=== PATIENT | female | born 2000 | race Caucasian/White ===

== ENCOUNTER 2024-06-29 18:33 | Emergency (ER) | payer BC, SELFPAY ==
[2024-06-29 18:38] VITALS: BP 130/73
[2024-06-29 18:57] VITALS: BMI 19.6
--- NOTE | 2024-06-29 19:49 | ED.GENMED ---
History of Present Illness
General
Chief Complaint: Catheter/Tube Problem
Source: patient
Exam Limitations: none
Time Seen by Provider: 06/29/24 19:19
Nursing documentation reviewed up to this point in time: agreed with
History of Present Illness
History of Present Illness:
23-year-old female with no significant chronic medical history who is currently and has been dealing with hyperemesis gravidarum presents to the ER for midline issue. Patient has a midline due to hyperemesis gravidarum receives regular
infusions of fluids and medication. Today had a home infusion and the line was apparently leaking and visiting nurse was having difficulty getting blood return and patient was sent to the emergency room for assessment. She does have some soreness
around the left upper arm but no redness or swelling. No other acute complaints.
Review of Systems
Review of Systems
All Other Systems: ROS reviewed and negative except as documented in HPI and ROS
Musculoskeletal: Reports other (Arm pain, midline issue)
Phy Exam
Physical Exam
Physical Exam:
General: Well appearing and non-toxic
HEENT: protecting airway
Neck: appears supple
CV: No evidence of cyanosis
Resp: No accessory muscle use
Abd: Non-distended
Extremities: No deformities; patient has a midline in the left upper arm; clean dressing in place, no erythema or warmth of the area, no tenderness, no edema, strong distal pulse
Neuro: Alert
Psych: Normal affect
Skin: Intact
Scores
Heart Failure Risk
Heart Failure Risk Score: Not Applicable
Heart Score for Chest Pain Patients
STEMI patient?: Not applicable
Withdrawal Assessment of Alcohol
Withdrawal Assessment Completed?: Not applicable
Course
Orders/Labs/Results
Orders:
Orders
06/29/24 19:23
Midline IV As Directed
06/29/24 19:28
US Periph Venous UPPER Ext LT Urgent
Comment:
Reason For Exam: arm pain s/p midlne
06/29/24 19:59
0.9% Sodium Chloride 1000 ml [Nss] 1,000 ml IV BOLUS
Thiamine Injection 100 mg IV NOW STA
Vital Signs
Initial and Last Documented VS:
Initial Vital Signs
Temp Pulse Resp BP Pulse Ox
36.8 C 83 18 130/73 100
06/29/24 18:38 06/29/24 18:38 06/29/24 18:38 06/29/24 18:38 06/29/24 18:38
Last Documented Vital Signs
Temp Pulse Resp BP Pulse Ox
36.8 C 83 18 130/73 100
06/29/24 18:38 06/29/24 18:38 06/29/24 18:38 06/29/24 18:38 06/29/24 18:38
MDM/Problems Addressed
Differential Diagnosis Includes:
DVT/thrombophlebitis, line displacement
MDM/Problems Addressed:
23-year-old female presents with midline issue that she has midline for hyperemesis gravidarum and had some leakage today and is having some soreness in the upper arm near where her line is placed. Vitals are normal, exam as above. Will check
ultrasound to rule out signs of DVT. Will remove current line and replace a midline in the right upper extremity. Reassess after the above.
Patient did not receive her infusion today due to midline issue�she was due for a dose of thiamine and normal saline infusion. Ordered here while ultrasound pending.
Ultrasound does show thrombus in the left basilic vein in the upper arm. Case discussed with hematology�given that patient is 10 weeks and that nidus for thrombus has been removed recommended conservative with monitoring and serial
ultrasounds rather than full anticoagulation. I had a long discussion with patient she feels comfortable with this plan. Plan to discharge with plan for repeat ultrasound as an outpatient. Spoke about return precautions all questions answered.
*Radiology
Radiology exam reviewed: radiology read reviewed
*Pulse Oximetry
Patient hypoxic: no
*Critical Care Note
Total Time (30-74mins, 75-104mins- exclusive of procedures): Not Applicable
Data Reviewed
Source: patient and spouse
Patient Management
Discussion with other providers: Hand Sewer Shoes (Discussed with hematology)
ED Attending Note
-
Portions of this chart may have been created with voice recognition software.� Occasional wrong word or��sound alike� substitutions may have occurred due to the inherent limitations of voice recognition software.
Discharge Plan
Departure
Patient Disposition: Home (Routine Discharge)
Date of Disposition: 06/29/24
Time of Disposition: 21:57
Patient with high blood pressure during this ER visit?: No
Discharge Problem:
Encounter for intravenous line placement, Acute basilic vein thrombosis
Instructions: How to care for a midline IV catheter, Midline IV catheter insertion
Referrals:
Dimas Lopez DO [Active] - Call in 1-3 days for appt (Hematology)
Lea Armstrong DO [Family Provider] -
Activity Restrictions/Additional Instructions:
You were found to have a clot in your arm near the site of your prior midline. This midline was removed and replaced on the other side. After discussion with the public health program manager they recommended monitoring without anticoagulation and getting a repeat
ultrasound as an outpatient. You should call to schedule follow-up appoint with the public health program manager in the office next week. If you notice worsening swelling or pain in your arm or you develop any other symptoms including chest pain or shortness of
breath please return immediately to the emergency room.
Thank you for visiting the Emergency Department at [facility].
1. Please schedule a follow up appointment as directed. Call first thing tomorrow morning to make an appointment.
2. If indicated, please take your medications as instructed and indicated on discharge paperwork.
3. If any of your symptoms do not improve, or persist, or become more severe within 6-12 hours, please return to the emergency department for further care.
4. Please return to the emergency department if you develop a headache, neck pain/stiffness, fever greater than 100.4F, chest pain, shortness of breath, persistent nausea, vomiting, slurred speech, difficulty walking, numbness/tingling, weakness,
signs of infection or any other symptoms that are worrisome to you.
Please call [phone] if you have any questions.
Interventions
Interventions:
*Risk Screen - Suicide Last Done: 06/29/24 18:38
*General Assessment Last Done: 06/29/24 18:38
*Neglect/Abuse Screening Last Done: 06/29/24 18:38
*ED- Fall Risk Assessment Last Done: 06/29/24 18:57
*ED COVID-19 Vaccine History Last Done: 06/29/24 18:57
WJ-Jupwar-Wdjmhxclcj Assessment Last Done: 06/29/24 18:57
ED-Female Genitourinary Assessment Last Done: 06/29/24 18:57
Discharge Date and Time
Print Language: AZERI
[2024-06-29] MEDS: NSS 1000 IV (20:06)
[2024-06-29] MEDS: THIAMINE INJECTION 100 MG IV (20:46)
--- NOTE | 2024-06-29 21:54 | VATNOTE ---
Called by ER staff to check Lt. arm Midline with pain in upper left arm. No notable redness, swelling, arm circumference is 25cm, which is what the spouse said it was on insertion. Drsg. c/d/i. Flushes easily, no blood return. Recommend US,
aware. New 4FR SL Midline inserted without difficulty in right arm, mina. well. rougher helper aware.
== END 2024-06-29 22:05 | disposition home or self-care (01) ==
LOC: EMR 18:33
PROVIDERS: EMERGENCY PHYSICIAN Emergency Medicine; FAMILY PHYSICIAN Family Medicine
DX: O22 Venous complications and hemorrhoids in pregnancy (principal); I82.612 Acute embolism and thrombosis of superficial veins of left upper extremity; Z46.89 Encounter for fitting and adjustment of other specified devices; O21.0 Mild hyperemesis gravidarum; Z3A.10 10 weeks gestation of pregnancy
CPT/HCPCS: 96374; 96361; 99284; 93971

== ENCOUNTER 2024-07-12 18:50 | Emergency (ER) | payer BC, SELFPAY ==
[2024-07-12 18:57] VITALS: BP 134/90
[2024-07-12 22:13] VITALS: BP 97/55; BMI 20.7
--- NOTE | 2024-07-12 22:15 | ED.GENMED ---
History of Present Illness
General
Chief Complaint: Catheter/Tube Problem
Source: patient
Time Seen by Provider: 07/12/24 22:05
History of Present Illness
History of Present Illness:
23-year-old female, G2, P0, currently 12 weeks presenting to the ER for evaluation after she noticed some discomfort to her right upper extremity during home infusion today through her right upper extremity midline. Patient was seen here
about 2 weeks ago when she had a midline to her left upper extremity which was found to have a basilic vein thrombosis, had the midline switch to her upper extremity and removed from the left. Patient was concern for possible recurring thrombus
which is why she presented to the ER today. She has no other concerns presently. Patient is being treated with the PICC line due to hyperemesis gravidarum.
Past History
Past History
ED Past Medical History: None
ED Past Surgical History: Other
Social History
Tobacco: Non-smoker
Alcohol: None
Drug: None
Personal:
Living: with family
Review of Systems
Review of Systems
All Other Systems: ROS reviewed and negative except as documented in HPI and ROS
Phy Exam
Physical Exam
Physical Exam:
GENERAL: Alert , in no apparent distress
EYE: conjunctiva clear
Head: Normocephalic atraumatic
NECK: Supple,
ENT: mmm.
LUNGS: no acute respiratory distress
NEUROLOGICAL: Alert and oriented
SKIN: Warm and dry, Right upper extremity midline in place, no surrounding erythema or edema
MUSCULOSKELETAL: well perfused.
PSYCH: Normal and appropriate interaction.
Scores
Heart Failure Risk
Heart Failure Risk Score: Not Applicable
Heart Score for Chest Pain Patients
STEMI patient?: Not applicable
Withdrawal Assessment of Alcohol
Withdrawal Assessment Completed?: Not applicable
Course
Orders/Labs/Results
Orders:
Orders
07/12/24 19:02
Venous Doppler Upr Ext Bilat [US Periph Venous UPPER Ext Roland] Urgent
Comment: midline in right upper arm, hx of clot to left upp
Reason For Exam: hx of clot from midline.
Vital Signs
Initial and Last Documented VS:
Initial Vital Signs
Temp Pulse Resp BP Pulse Ox
98.7 F 93 16 134/90 100
07/12/24 18:57 07/12/24 18:57 07/12/24 18:57 07/12/24 18:57 07/12/24 18:57
Last Documented Vital Signs
Temp Pulse Resp BP Pulse Ox
98.7 F 81 15 97/55 98
07/12/24 18:57 07/12/24 22:13 07/12/24 22:13 07/12/24 22:13 07/12/24 22:13
MDM/Problems Addressed
Differential Diagnosis Includes:
Recurring thrombosis, medication infiltration, midline discomfort
MDM/Problems Addressed:
23-year-old female presenting the ER for evaluation after experiencing discomfort to the right upper extremity for at the insertion of her midline. Here 2 weeks ago and was found to have a basilic vein thrombosis. Will order ultrasound to assess
here, disposition pending.
*Radiology
Radiology exam reviewed: radiology read reviewed
*Pulse Oximetry
Patient hypoxic: no
*Critical Care Note
Total Time (30-74mins, 75-104mins- exclusive of procedures): Not Applicable
Patient Management
Escalation/DeEscalation of care consider admission/obs:
Ultrasound negative for thrombosis or DVT. Patient reassured. Stable for discharge and outpatient follow-up as scheduled.
ED Attending Note
-
Portions of this chart may have been created with voice recognition software.� Occasional wrong word or��sound alike� substitutions may have occurred due to the inherent limitations of voice recognition software.
Discharge Plan
Departure
Patient Disposition: Home (Routine Discharge)
Date of Disposition: 07/12/24
Time of Disposition: 22:15
Patient with high blood pressure during this ER visit?: No
Discharge Problem:
Status post PICC central line placement
Instructions: How to care for a peripherally inserted central catheter (PICC)
Interventions
Interventions:
*General Assessment Last Done: 07/12/24 18:57
*ED COVID-19 Vaccine History Last Done: 07/12/24 18:57
NS-Kuyqnd-Pobwntazcu Assessment Last Done: 07/12/24 22:14
ED-Female Genitourinary Assessment Last Done: 07/12/24 22:14
Discharge Date and Time
Print Language: LITHUANIAN
--- NOTE | 2024-07-12 23:14 | VATNOTE ---
Late entry: Called by ER staff to redress Rt. arm Midline, placed here on 06/29. Midline redressed, per protocol, mina. well. shrimp header aware.
== END 2024-07-12 22:45 | disposition home or self-care (01) ==
LOC: EMR 18:50
PROVIDERS: EMERGENCY PHYSICIAN Emergency Medicine
DX: O99.891 Other specified diseases and conditions complicating pregnancy (principal); M79.621 Pain in right upper arm; Z45.2 Encounter for adjustment and management of vascular access device; Z3A.12 12 weeks gestation of pregnancy
CPT/HCPCS: 99284; 93970